=== PATIENT | female | born 1945 | race Caucasian/White ===

== ENCOUNTER 2017-08-23 09:16 | Day surgery (SDC) | payer MEDICARE ==
[~2017-08-23 09:16] MED LIST: Acetaminophen/HYDROcodone 325-5 MG Tab PO PRN; Lactated Ringers 1,000 ML IV SCH; ceFAZolin 2 GM in Premix Bag 1 BAG IV SCH
[2017-08-23] MEDS ORDERED: fentaNYL 100 MCG/2 ML SDV ONE (09:25)
[2017-08-23] MEDS ORDERED: Propofol 200 MG/20 ML SDV ONE (09:25)
[2017-08-23] MEDS ORDERED: Midazolam 1 MG/ML 2 ML SDV ONE (09:25)
[2017-08-23] MEDS ORDERED: Lidocaine 2% 5 ML SDV ONE (09:25)
[2017-08-23] MEDS ORDERED: ceFAZolin/Dextrose,Iso-Osmotic 2 GM/50 ML Duplex Bag IV ONE (09:28)
[2017-08-23] MEDS ORDERED: Ketorolac 30 MG/ML SDV ONE (09:34)
[2017-08-23] MEDS ORDERED: Ondansetron 4 MG/2 ML SDV ONE (09:34)
[2017-08-23] MEDS ORDERED: Lidocaine 1% 20 ML MDV ONE (10:51)
--- NOTE | 2017-08-23 10:52 | PCM.PREANE ---
Preanesthetic Assessment - Anesthesia/Transfusion/Family Hx Anesthesia History: Prior Anesthesia Without Reaction Family History of Anesthesia Reaction: No Transfusion History: No Prior Transfusion(s) - Review of Systems General: No Symptoms Pulmonary: No Symptoms Cardiovascular: No Symptoms Gastrointestinal: No Symptoms Neurological: No Symptoms Other: Reports: None - Physical Assessment NPO Status Date: 08/22/17 NPO Status Time: 22:00 O2 Sat by Pulse Oximetry: 97 Respiratory Rate: 16 Vital Signs: Last Vital Signs Temp 36.3 C 08/23/17 09:25 Pulse 68 08/23/17 09:25 Resp 16 08/23/17 09:25 BP 138/78 08/23/17 09:25 Pulse Ox 97 08/23/17 09:25 Height: 1.66 m Weight: 81.647 kg ASA Class: 2 Mental Status: Alert & Oriented x3 Dentition: Reports: Normal Dentition Thyro-Mental Finger Breadths: 3 Mouth Opening Finger Breadths: 2 ROM/Head Extension: Full Lungs: Clear to Auscultation Cardiovascular: Regular Rate - Allergies Allergies/Adverse Reactions: Allergies Allergy/AdvReac Type Severity Reaction Status Date / Time lisinopril Allergy Cough Verified 08/18/17 13:05 - Blood Blood Available: No - Anesthesia Plan Free Text/Narrative:: L M A general - Acknowledgements Anesthesia Type Planned: General Anesthesia Pt an Appropriate Candidate for the Planned Anesthesia: Yes Alternatives and Risks of Anesthesia Discussed w Pt/Guardian: Yes Pt/Guardian Understands and Agrees with Anesthesia Plan: Yes PreAnesthesia Questionnaire HEENT History: Reports: Other (See Below) Other HEENT History: wears glasses/contacts Cardiovascular History: Reports: High Cholesterol, Hypertension Musculoskeletal History: Reports: Arthritis, Fracture Other Musculoskeletal History: left ankle Psychiatric History: Reports: Anxiety - Past Surgical History Head Surgeries/Procedures: Reports: None GI Surgical History: Reports: Appendectomy Female Surgical History: Reports: Section, Tubal Ligation Musculoskeletal Surgical History: Reports: ORIF Other Musculoskeletal Surgeries/Procedures:: ORIF right ankle (has hardware) - SUBSTANCE USE Smoking Status *Q: Never Smoker Recreational Drug Use History: No - HOME MEDS Home Medications: Home Meds Aspirin [Adult Low Dose Aspirin EC] 81 mg PO BEDTIME 08/18/17 [History] Cholecalciferol (Vitamin D3) [Vitamin D3] 2,000 unit PO DAILY 08/18/17 [History] Losartan Potassium 50 mg PO BEDTIME 08/18/17 [History] Lovastatin 20 mg PO DAILY 08/18/17 [History] Venlafaxine HCl [Venlafaxine HCl ER] 75 mg PO DAILY 08/18/17 [History] Zinc 50 mg PO DAILY 08/18/17 [History] - CURRENT (IN HOUSE) MEDS Current Meds: Current Medications Hydrocodone Bitart/Acetaminophen (Smyer 325-5 Mg) 1 - 2 tab PO Q4H PRN PRN Reason: Pain Cefazolin Sodium/Dextrose 2 gm (/ Premix) 50 mls @ 100 mls/hr IV ONCALL [facility] Lactated Ringer's (Ringers, Lactated) 1,000 mls @ 100 mls/hr IV ASDIRECTED [facility] Last Admin: 08/23/17 09:40 Dose: 100 mls/hr Discontinued Medications Cefazolin Sodium/Dextrose (Ancef) Confirm Administered Dose 2 gm IV .STK-MED ONE Stop: 08/23/17 09:29 Fentanyl (Sublimaze) Confirm Administered Dose 200 mcg .ROUTE .STK-MED ONE Stop: 08/23/17 09:26 Ketorolac Tromethamine (Toradol) Confirm Administered Dose 30 mg .ROUTE .STK- MED ONE Stop: 08/23/17 09:35 Lidocaine (Xylocaine-Mpf 2%) Confirm Administered Dose 10 ml .ROUTE .STK-MED ONE Stop: 08/23/17 09:26 Midazolam HCl (Versed 1 Mg/Ml) Confirm Administered Dose 2 mg .ROUTE .STK-MED ONE Stop: 08/23/17 09:26 Ondansetron HCl (Zofran) Confirm Administered Dose 4 mg .ROUTE .STK-MED ONE Stop: 08/23/17 09:35 Propofol (Diprivan 20 Ml) Confirm Administered Dose 400 mg .ROUTE .STK-MED ONE Stop: 08/23/17 09:26
[2017-08-23] MEDS ORDERED: ePHEDrine 50 MG/ML SDV ONE (11:42)
[2017-08-23] MEDS ORDERED: fentaNYL 100 MCG/2 ML SDV IVPUSH PRN (11:46)
--- NOTE | 2017-08-23 12:06 | PCM.OPNOTE ---
- General Post-Op/Procedure Note Date of Surgery/Procedure: 08/23/17 Operative Procedure(s): L knee scope with PMM and limited synovectomy Post-Op Diagnosis: L knee DJD, medial meniscus tear, and medial plica Anesthesia Technique: General LMA Primary Surgeon: Re Woods Product Consultant: Juanjo Kirby in mLs: 5 Condition: Good Free Text/Narrative:: tt=22 min #[id number]
--- NOTE | 2017-08-23 13:29 | OR ---
SURGEON: Re Woods MD DATE OF PROCEDURE: 08/23/2017 PREOPERATIVE DIAGNOSES: 1. Degenerative joint disease, left knee. 2. Left knee medial meniscus tear. POSTOPERATIVE DIAGNOSES: 1. Degenerative joint disease, left knee. 2. Left knee medial meniscus tear. 3. Medial plica, left knee. PROCEDURES: Left knee arthroscopy with partial medial meniscectomy and limited synovectomy (excision of medial plica). SMOKING TOBACCO CUTTER OPERATOR: Juanjo Duong MD, PGY2. ANESTHESIA: General. ESTIMATED BLOOD LOSS: 5 mL. TOURNIQUET TIME: 22 minutes. COMPLICATIONS: None. DVT PROPHYLAXIS: Not indicated. IMPLANTS USED: None. BRIEF HISTORY: Stefania is a 71-year-old female, who has had complaint of progressive left knee pain. An MRI did show minor degenerative changes along with tear of the medial meniscus. Due to her lack of response to conservative treatment, I did recommend surgical intervention. The risks and goals of procedure were discussed with the patient and were documented preoperatively. She agreed to proceed. DESCRIPTION OF PROCEDURE: The patient was properly identified and brought to the operating room. She was transferred from the OR cart and placed on the operating table in supine position. General anesthesia was administered. After adequate anesthesia was obtained, a well-padded tourniquet was applied to the left lower extremity. The left lower extremity was then prepped in standard fashion using ChloraPrep solution. It was then sterilely draped. A time-out was performed to ensure correct site and procedure. Preoperative antibiotics were given. The surgical site had been marked preoperatively. An Esmarch was used to exsanguinate the left lower extremity and the tourniquet was inflated to 250 mmHg. A lateral portal arthrotomy was established. Blunt trocar and cannula were introduced into the suprapatellar pouch. Camera, inflow, and outflow were assembled. No significant synovitis was noted. The patellofemoral joint was visualized. 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 Grade 2 chondromalacia was noted along the trochlear groove. The patella appeared to track centrally. I then extended down the lateral gutter. No loose bodies were identified. As I extended down the medial gutter, it was noted that a large plica band was in place. This appeared to be causing impingement on the medial femoral condyle and did cause difficulty extending down the medial gutter. I was able to get down the medial gutter and no loose bodies were identified. I then entered the medial compartment. A medial portal arthrotomy was established. A blunt probe was inserted. She did have a radial tear of the posterior horn of the medial meniscus, which appeared to be unstable. Using a combination of biters and shaver, this was resected back to a stable remnant. It was again probed and found to be stable. Diffuse grade 2 chondromalacia was noted along the medial tibial plateau. Similar findings were noted along the medial femoral condyle. I then entered the notch. Both the ACL and PCL were visualized and probed and found to be intact. Finally, entered the lateral compartment. The meniscus was probed and found to be intact. Grade 3 chondromalacia was noted along the lateral tibial plateau. Grade 2 chondromalacia was noted along the lateral femoral condyle. I then re-entered the patellofemoral joint. A chondroplasty of the patella was performed. A limited synovectomy was then used to remove the plica band. It was noted that grade 3 chondromalacia was noted along this band and it appeared to be causing some impingement. Once the band was released, no further impingement was noted. She did have quite an abundant fat pad, which appeared to be impinging within the patellofemoral joint as well and a portion of this was also resected. The instruments were then removed from the knee. The portal sites were closed with 3-0 nylon. 1% lidocaine was injected along the portal tracts. Xeroform gauze was placed over the wound and a bulky dressing was applied. The tourniquet was then deflated. She was awakened from her anesthetic and transferred back to the operating room cart. She was brought to recovery room in stable condition. All needle and sponge counts were correct. MADELEINE / TASNEEM /[id number]
--- NOTE | 2017-08-23 14:29 | PCM.POSTAN ---
POST ANESTHESIA ASSESSMENT - MENTAL STATUS Mental Status: Alert, Oriented - RESPIRATORY Respiratory Status: Respiratory Rate WNL, Airway Patent, O2 Saturation Stable - CARDIOVASCULAR CV Status: Pulse Rate WNL, Blood Pressure Stable - GASTROINTESTINAL GI Status: No Symptoms - POST OP HYDRATION Hydration Status: Adequate & Stable
== END 2017-08-23 14:40 | disposition home or self-care (01) ==
LOC: MW.SDS 09:16
PROVIDERS: ATTEND Orthopaedic Surgery
DX: M23.222 Derangement of posterior horn of medial meniscus due to old tear or injury, left knee (principal); M94.29 Chondromalacia, multiple sites; M67.52 Plica syndrome, left knee; M17.0 Bilateral primary osteoarthritis of knee; I10 Essential (primary) hypertension; E78.00 Pure hypercholesterolemia, unspecified; F41.9 Anxiety disorder, unspecified; Z79.82 Long term (current) use of aspirin; Z79.899 Other long term (current) drug therapy
CPT/HCPCS: 29881; J0690; J1885; J2250; J2405; J3010; J7120; J2704